=== PATIENT | male | born 1960 | race Caucasian/White ===

== ENCOUNTER 2021-02-09 02:00 | Emergency (ER) | payer BC ==
[2021-02-09 02:16] VITALS: BP 127/97
--- NOTE | 2021-02-09 02:56 | ED Physician Documentation ---
History of Present Illness - Stated complaint Stated Complaint: GLF - Chief complaint Chief Complaint: Trauma Hd/Nk - History obtained from History obtained from: Patient - Additonal information Additional information: 60-year-old man presents with bilateral epistaxis and midline cervical and lumbar back pain after a fall out of bed this evening. Patient is on Xarelto for atrial fibrillation. He is also diabetic. He is complaining of bilateral hand tingling and numbness. He has chronic peripheral neuropathy of the legs that are unchanged and denies weakness of the lower extremity. No other traumatic injury reported. Review of Systems Nose: reports: Epistaxis Skin: denies: Lesions, Abrasion (s), Laceration (s) Neurologic: reports: Head injury. denies: LOC PD PAST MEDICAL HISTORY - Past Medical History Past Medical History: Yes Cardiovascular: Hypertension, High cholesterol, Other Respiratory: None Neuro: None Endocrine/Autoimmune: Type 2 diabetes GI: GERD : None HEENT: None Psych: Other Musculoskeletal: None Derm: None Other Past Medical History: PERIPHERAL NEUROPATHY... - Past Surgical History Past Surgical History: No - Present Medications Home Medications: Ambulatory Orders Medication Instructions Recorded Confirmed Atorvastatin [Lipitor] 10 mg PO DAILY 02/09/21 02/09/21 Digoxin [Lanoxin] 125 mcg PO DAILY 02/09/21 02/09/21 Duloxetine HCl [Cymbalta] 120 mg PO DAILY 02/09/21 02/09/21 Empagliflozin [Jardiance] 10 mg PO DAILY 02/09/21 02/09/21 Famotidine [Pepcid] 20 mg PO DAILY 02/09/21 02/09/21 Gabapentin [Neurontin] 600 mg PO DAILY 02/09/21 02/09/21 Metformin HCl [Glucophage] 1,000 mg PO BID 02/09/21 02/09/21 Metoprolol Succinate [Toprol Xl] 50 mg PO DAILY 02/09/21 02/09/21 Rivaroxaban [Xarelto] 20 mg PO DAILY 02/09/21 02/09/21 - Allergies Allergies/Adverse Reactions: Allergies Allergy/AdvReac Type Severity Reaction Status Date / Time No Known Drug Allergies Allergy Verified 02/09/21 02:20 - Social History Does the pt smoke?: No Smoking Status: Never smoker Does the pt drink ETOH?: No Does the pt have substance abuse?: No - Immunizations Immunizations are current?: Yes - POLST Patient has POLST: No PD ED PE NORMAL - Vitals Vital signs reviewed: Yes - General General: Alert and oriented X 3, No acute distress, Well developed/nourished - HEENT HEENT: Atraumatic, PERRL, EOMI, Other (BL dried blood in nares. no NSH) - Neck Neck: Other (+midline cervical ttp) - Cardiac Cardiac: RRR - Respiratory Respiratory: No respiratory distress, Clear bilaterally - Abdomen Abdomen: Non tender, Non distended, Other (pelvis stable) - Back Back: Other (lumbar spine ttp) - Derm Derm: Normal color, Warm and dry - Extremities Extremities: No deformity, Normal ROM s pain - Neuro Neuro: Alert and oriented X 3, No motor deficit, No sensory deficit, Other (tingling in BL hands) - Psych Psych: Normal mood, Normal affect Results - Vitals Vitals: Vital Signs - 24 hr 02/09/21 02/09/21 02:09 02:25 Temperature 36.1 C L Heart Rate 80 78 Respiratory 17 17 Rate Blood Pressure 127/97 H O2 Saturation 99 98 Oxygen O2 Source Room air PD MEDICAL DECISION MAKING - ED course ED course: 60-year-old man presented as a modified trauma status post fall on Eliquis. He has midline cervical and lumbar pain. Fast negative in the emergency department and chest x-ray does not show a pneumothorax. I explained to him that he will require advanced imaging and we do not currently have CT at the moment. I called [facility] and they said they would accept him in transfer however he is concerned about cost of ambulance ride and would like to drive via private vehicle. Discussed risks of leaving AMA including and disability and the patient has capacity and understands. Departure - Departure Disposition: 07 Against Medical Advice Clinical Impression: Epistaxis, Midline back pain
--- NOTE | 2021-02-09 09:22 | XRAY Report ---
PROCEDURE: Chest 1 View X-Ray INDICATIONS: trauma TECHNIQUE: 2 frontal views of the chest were performed. COMPARISON: None FINDINGS: Surgical changes and devices: Overlying EKG wires. Lungs and pleura: Subtle basilar opacities. No pneumothorax or large joint pleural effusion. Mediastinum: Mediastinal contours appear normal. Heart size is normal. Bones and chest wall: No suspicious bony lesions. Overlying soft tissues appear unremarkable. IMPRESSION: Subtle basilar opacities may represent atelectasis or overlapping structures versus infiltrate or con tusion in the setting of trauma. Reviewed by: Rafael Lima DO on 02/09/2021 8:21 AM FLORA Approved by: Rafale Lima DO on 02/09/2021 8:21 AM FLORA Station ID: [id number]
== END 2021-02-09 02:57 | disposition left against medical advice (07) ==
LOC: ED 02:00
DX: M54.5 Low back pain (principal); W06.XXXA Fall from bed, initial encounter; R04.0 Epistaxis; I48.91 Unspecified atrial fibrillation; Z79.01 Long term (current) use of anticoagulants; E11.42 Type 2 diabetes mellitus with diabetic polyneuropathy; Z79.84 Long term (current) use of oral hypoglycemic drugs
CPT/HCPCS: 99283

== ENCOUNTER 2023-02-18 06:59 | Outpatient (CLI) | payer BC ==
--- NOTE | 2023-02-18 09:00 | MRI Report ---
PROCEDURE: CERVICAL SPINE WO INDICATIONS: LUMBAR STENOSIS,CERVICAL MYELOPATHY TECHNIQUE: Noncontrast sagittal T1 spin echo and T2 fast spin echo, sagittal STIR, foraminal oblique sagittal T2 fast spin echo, and axial gradient echo or T2 fast spin echo through the cervical spine. COMPARISON: None. FINDINGS: Image quality: Excellent. Alignment and Curvature: There is loss of normal cervical lordosis. Bone Marrow: Marrow demonstrates normal overall signal. Mild reactive signal throughout the endplat es of the cervical and upper thoracic spine. Spinal Cord: Visualized spinal cord has normal size and signal. No cerebellar tonsillar herniation. Paraspinous Soft Tissues: No paravertebral masses. Prevertebral soft tissues are normal in thicknes s. C2-C3: Moderate disc desiccation. Mild diffuse disc bulge with superimposed left posterior lateral p rotrusion. Congenital canal stenosis. Mild facet and uncovertebral hypertrophy bilaterally. Moderate canal stenosis. Severe left and moderate right foraminal stenosis. Left C3 nerve root compression. C3-C4: Congenital canal stenosis. Moderate disc desiccation. Mild diffuse disc bulge. Mild facet an d uncovertebral hypertrophy bilaterally. Severe canal stenosis. Mild cord flattening. Severe bilatera l foraminal stenosis with bilateral C4 nerve root compression. C4-C5: Moderate disc desiccation. Mild diffuse disc bulge. Mild facet and uncovertebral hypertrophy bilaterally. Congenital canal stenosis. Severe canal stenosis. Mild cord flattening. Severe bilateral foraminal stenosis with bilateral C5 nerve root compression. C5-C6: Moderate disc height loss and desiccation. Moderate diffuse disc bulge. Congenital canal sten osis. Moderate facet and uncovertebral hypertrophy. Severe canal stenosis. Moderate to severe cord fl attening. Severe bilateral foraminal stenosis with bilateral C6 nerve root compression. C6-C7: Congenital canal stenosis. Moderate disc height loss and desiccation. Moderate diffuse disc b ulge with superimposed right paracentral protrusion. Moderate facet and uncovertebral hypertrophy kip aterally. Severe canal stenosis. Moderate to severe right cord flattening. Severe bilateral foraminal stenosis with bilateral C7 nerve root compression C7-T1: Congenital canal stenosis. Mild disc height loss. Moderate disc desiccation. Mild diffuse dis c bulge with superimposed left posterolateral protrusion. Moderate facet and uncovertebral hypertroph y bilaterally. Severe canal stenosis. Moderate left cord flattening. Severe left and moderate right f oraminal stenosis. Left C8 nerve root compression. IMPRESSION: 1. Diffuse congenital canal stenosis with superimposed disc and facet disease, as well as uncovertebr al hypertrophy. 2. Multilevel canal stenoses, worst at C3-C4, C4-C5, C5-C6, C6-C7, and C7-T1, where there is associat ed cord flattening. 3. Multilevel regions of intraforaminal nerve root compression throughout the cervical spine as descr ibed above. Reviewed by: Miriam Man MD on 02/18/2023 8:59 AM PDT Approved by: Miriam Man MD on 02/18/2023 8:59 AM PDT Station ID: [id number]
== END 2023-02-18 07:00 | disposition home or self-care (01) ==
LOC: DI 06:59
PROVIDERS: ATTEND Physical Medicine & Rehabilitation
DX: M47.22 Other spondylosis with radiculopathy, cervical region (principal); M48.02 Spinal stenosis, cervical region; M50.11 Cervical disc disorder with radiculopathy, high cervical region

== ENCOUNTER 2024-04-06 16:21 | Emergency (ER) | payer BC ==
[2024-04-06] MEDS: TETANUS/DIPHTHERIA/PERTUSSIS 0.5 ML SYRINGE IM ONE (16:55)
--- NOTE | 2024-04-06 16:58 | ED Physician Documentation ---
PD HPI UPPER EXT INJURY - Stated complaint Stated Complaint: LT HAND LAC - Chief complaint Chief Complaint: Laceration - History obtained from History obtained from: Patient (Right-handed gentleman with unknown tetanus status accidentally cut his left hand with a carpet knife while working at home just prior to arrival.) PD PAST MEDICAL HISTORY - Past Medical History Past Medical History: Yes Cardiovascular: Hypertension, High cholesterol, Other Respiratory: None Neuro: None Endocrine/Autoimmune: Type 2 diabetes GI: GERD : None HEENT: None Psych: Other Musculoskeletal: None Derm: None - Past Surgical History Past Surgical History: No - Present Medications Home Medications: Ambulatory Orders Medication Instructions Recorded Confirmed Atorvastatin [Lipitor] 10 mg PO DAILY 02/09/21 02/09/21 Digoxin [Lanoxin] 125 mcg PO DAILY 02/09/21 02/09/21 Duloxetine HCl [Cymbalta] 120 mg PO DAILY 02/09/21 02/09/21 Empagliflozin [Jardiance] 10 mg PO DAILY 02/09/21 02/09/21 Famotidine [Pepcid] 20 mg PO DAILY 02/09/21 02/09/21 Gabapentin [Neurontin] 600 mg PO DAILY 02/09/21 02/09/21 Metformin HCl [Glucophage] 1,000 mg PO BID 02/09/21 02/09/21 Metoprolol Succinate [Toprol Xl] 50 mg PO DAILY 02/09/21 02/09/21 Rivaroxaban [Xarelto] 20 mg PO DAILY 02/09/21 02/09/21 - Allergies Allergies/Adverse Reactions: Allergies Allergy/AdvReac Type Severity Reaction Status Date / Time No Known Drug Allergies Allergy Verified 04/06/24 16:47 - Social History Does the pt smoke?: No Smoking Status: Never smoker Does the pt drink ETOH?: No Does the pt have substance abuse?: No - Immunizations Immunizations are current?: Yes - POLST Patient has POLST: No PD ED PE NORMAL - Vitals Vital signs reviewed: Yes - General General: Alert and oriented X 3, No acute distress - Extremities Extremities: Other (2 cm laceration on the dorsolateral hand over the first metacarpal. Distally sensation is intact on all areas of the distal thumb with normal extensor tendon strength.) - Neuro Neuro: Alert and oriented X 3 Results - Vitals Vitals: Vital Signs - 24 hr 06/26/24 16:44 Temperature 36.0 C L Heart Rate 89 Respiratory 20 Rate Blood Pressure 102/70 O2 Saturation 97 Oxygen O2 Source Room air Procedures - Laceration (location) L hand Length in cm: 2 Wound type: Linear, Into subcut fat Neurovascular status: Sensory intact, Motor intact Tendon involvement: Tendon intact Anesthesia: Lidocaine 1% Wound preparation: Irrigated copiously NS Skin layer closure: Nylon, Interrupted, Size #-0 - enter number (4-0), Sutures - enter # (5) Other: Patient tolerated well, No complications, Neurovascular intact, Dressing applied, Tetanus booster given Departure - Departure Disposition: Home, Self Care Clinical Impression: Laceration of left hand Qualifiers: Encounter type: initial encounter Foreign body presence: without foreign body Qualified Code(s): S61.412A - Laceration without foreign body of left hand, initial encounter Condition: Good Record reviewed to determine appropriate education?: Yes Instructions: ED Laceration Hand Comments: Note for your records that you received a Tdap shot today. Come back for any signs of infection which would include: Redness, swelling, drainage, increased pain, or fevers. You can wash it soap and water. Keep it covered and moist with bacitracin ointment which is available over the counter; avoid neosporin. Follow-up with your physician in about 14 days for suture removal.
[2024-04-06 17:14] VITALS: BP 99/73; O2SAT 96
== END 2024-04-06 17:08 | disposition home or self-care (01) ==
LOC: ED 16:21
DX: S61.412A Laceration without foreign body of left hand, initial encounter (principal); W26.0XXA Contact with knife, initial encounter; Y92.009 Unspecified place in unspecified non-institutional (private) residence as the place of occurrence of the external cause; I10 Essential (primary) hypertension; E78.00 Pure hypercholesterolemia, unspecified; E11.9 Type 2 diabetes mellitus without complications; Z79.899 Other long term (current) drug therapy; Z79.84 Long term (current) use of oral hypoglycemic drugs; Z79.01 Long term (current) use of anticoagulants; Z23 Encounter for immunization
CPT/HCPCS: 12001; 90471; 99283